=== PATIENT | male | born 1935 | race Caucasian/White ===

== ENCOUNTER 2021-07-23 17:10 | Emergency (ER) | payer OTHER ==
[2021-07-23 17:27] VITALS: TEMP 98.4; BMI 32.1
[2021-07-23 18:59] LABS: BASO % 0.4 % (0-2.0); EOS % 0.9 % (0-4.5); HEMATOCRIT 34.8 % (35.4-49); HEMOGLOBIN 11.9 GM/dL (11.7-16.9); LYMPH % 31.1 % (8-40); MCH 29.5 pg (25.7-33.7); MEAN CELL VOLUME 86.8 fl (80-96); MEAN PLT VOLUME 9.9 fl (7.5-11.1); MONO % 28.6 % (3.8-10.2); PLATELET COUNT 119 10^3/uL (134-434); RBC 4.01 M/mm3 (4.00-5.60); RDW 14.3 % (11.9-15.9); WHITE BLOOD COUNT 5.4 K/mm3 (4.0-10.0)
[2021-07-23 19:15] LABS: ALBUMIN 3.9 g/dl (3.4-5.0); BLOOD UREA NITROGEN 21.8 mg/dL (7-18); CALCIUM 9.1 mg/dL (8.5-10.1)
[2021-07-23 19:18] LABS: CREATININE 1.3 mg/dL (0.55-1.3)
[2021-07-23 19:21] VITALS: BP 154/66; PULSE 66
[2021-07-23 19:21] LABS: BILIRUBIN,TOTAL 0.4 mg/dL (0.2-1)
[2021-07-23 19:27] LABS: EPI CELLS 3 /uL (0-25.1); HYALINE CASTS 15 /uL (0-3.1); URINE APPEARANCE TURBID; URINE BILIRUBIN 2+ (NEGATIVE); URINE COLOR RED; URINE GLUCOSE (UA) NEGATIVE (NEGATIVE); URINE KETONE NEGATIVE (NEGATIVE); URINE LEUK ESTERASE 2+ (NEGATIVE); URINE NITRITE POSITIVE (NEGATIVE); URINE PROTEIN 2+ (NEGATIVE); URINE RBC 5787 /uL (0-23.9); URINE UROBILINOGEN 0.2 mg/dL (0.2-1.0); URINE WBC 7 /uL (0-25.8)
[2021-07-23] MEDS ORDERED: CEFPODOXIME PROXETIL 100 MG TABLET PO ONE ×2 (19:39→19:46)
[2021-07-23 20:06] LABS: URINE BACTERIA NONE SEEN /uL (0-1359)
[2021-07-23 20:47] LABS: ANISOCYTOSIS 1+; MACROCYTOSIS 0
[2021-07-23 22:33] LABS: PLATELET ESTIMATE ADEQUATE
== END 2021-07-23 20:41 | disposition home or self-care (01) ==
LOC: JER 17:10
DX: N30.01 Acute cystitis with hematuria (principal)
CPT/HCPCS: 36415; 71045-TC-FY; 80053; 81003; 84443; 84484; 85025; 86850; 86900; 86901; 87086; 87186; 93005; 93010; 99285-25

== ENCOUNTER 2022-01-31 17:45 | Inpatient (IN) | payer OTHER, MEDICARE ==
[2022-01-31 20:27] LABS: HEMOGLOBIN 10.2 GM/dL (11.7-16.9); MCH 28.5 pg (25.7-33.7); MEAN CELL VOLUME 83.9 fl (80-96); MEAN PLT VOLUME 9.6 fl (7.5-11.1); PLATELET COUNT 233 10^3/uL (134-434); RBC 3.57 M/mm3 (4.00-5.60); RDW 16.9 % (11.9-15.9); WHITE BLOOD COUNT 8.6 K/mm3 (4.0-10.0)
[2022-01-31 20:38] LABS: INR 1.21 (0.83-1.09); PROTHROMBIN TIME (PATIENT) 13.9 SEC (9.7-13.0)
[2022-01-31 20:40] LABS: ACTIVATED PTT 37.1 SECONDS (25.2-36.5)
[2022-01-31 20:41] LABS: BLOOD UREA NITROGEN 15.6 mg/dL (7-18); CALCIUM 8.8 mg/dL (8.5-10.1); MAGNESIUM 1.9 mg/dL (1.8-2.4)
[2022-01-31 20:42] LABS: ALBUMIN 2.8 g/dl (3.4-5.0)
[2022-01-31 20:44] LABS: CREATININE 1.4 mg/dL (0.55-1.3)
[2022-01-31 20:46] LABS: BILIRUBIN,TOTAL 1.3 mg/dL (0.2-1); TOT PROT 6.2 g/dl (6.4-8.2)
[2022-01-31 21:09] LABS: ANISOCYTOSIS 1+; MACROCYTOSIS 0
[2022-01-31] MEDS ORDERED: LACTATED RINGERS SOLUTION 1000 ML INFUS.BAG IV ONE (21:09)
[2022-02-01 05:08] LABS: EPI CELLS 4 /uL (0-25.1); HYALINE CASTS 3 /uL (0-3.1); PH,URINE 7.5 (5.0-8.0); URINE APPEARANCE CLEAR; URINE BACTERIA 2 /uL (0-1359); URINE BILIRUBIN NEGATIVE (NEGATIVE); URINE COLOR YELLOW; URINE GLUCOSE (UA) NEGATIVE (NEGATIVE); URINE KETONE NEGATIVE (NEGATIVE); URINE LEUK ESTERASE NEGATIVE (NEGATIVE); URINE NITRITE NEGATIVE (NEGATIVE); URINE PROTEIN 3+ (NEGATIVE); URINE RBC 3 /uL (0-23.9); URINE UROBILINOGEN 0.2 mg/dL (0.2-1.0); URINE WBC 4 /uL (0-25.8)
[2022-02-01] MEDS ORDERED: PNEUMOC 20-VAL CONJ-DIP CRM/PF 0.5 ML SYRINGE IM ONE (10:00)
[2022-02-01 10:29] LABS: HEMOGLOBIN 8.8 GM/dL (11.7-16.9); MCH 28.7 pg (25.7-33.7); MCHC 33.9 g/dl (32.0-35.9); MEAN CELL VOLUME 84.7 fl (80-96); MEAN PLT VOLUME 9.8 fl (7.5-11.1); PLATELET COUNT 153 10^3/uL (134-434); RBC 3.07 M/mm3 (4.00-5.60); RDW 16.6 % (11.9-15.9); WHITE BLOOD COUNT 8.1 K/mm3 (4.0-10.0)
[2022-02-01 10:49] LABS: CALCIUM 8.6 mg/dL (8.5-10.1)
[2022-02-01 10:50] LABS: ALBUMIN 2.8 g/dl (3.4-5.0); BLOOD UREA NITROGEN 11.2 mg/dL (7-18)
[2022-02-01 10:53] LABS: CREATININE 1.2 mg/dL (0.55-1.3)
[2022-02-01 10:54] LABS: BILIRUBIN,TOTAL 0.5 mg/dL (0.2-1)
[2022-02-01 10:55] LABS: TOT PROT 5.8 g/dl (6.4-8.2)
[2022-02-01] MEDS ORDERED: POTASSIUM CHLORIDE TABS 20 MEQ TABLET.ER (FP) PO ONE (11:19)
[2022-02-01] MEDS ORDERED: ALBUTEROL SO4 2.5/IPRATROPIUM 0.5 INH SOL 3 ML VIAL.NEB. NEB PRN (11:43)
[2022-02-01 11:45] LABS: ANISOCYTOSIS 1+; MACROCYTOSIS 0; OVALOCYTE 1+
[2022-02-01] MEDS: SODIUM CHLORIDE 0.45%/POT 20 MEQ/1,000 ML INFUS.BAG IV SCH (14:11)
[2022-02-01] MEDS: LORazepam 0.5 MG TABLET PO PRN (17:36)
[2022-02-02] MEDS: LORazepam 0.5 MG TABLET PO PRN ×2 (09:46→18:52)
[2022-02-02 13:13] LABS: CALCIUM 8.7 mg/dL (8.5-10.1)
[2022-02-02 13:14] LABS: ALBUMIN 2.8 g/dl (3.4-5.0); BLOOD UREA NITROGEN 13.8 mg/dL (7-18)
[2022-02-02 13:17] LABS: CREATININE 1.3 mg/dL (0.55-1.3); PHOSPHOROUS 2.8 mg/dL (2.5-4.9)
[2022-02-02 13:18] LABS: BILIRUBIN,TOTAL 0.6 mg/dL (0.2-1)
[2022-02-02 13:19] LABS: TOT PROT 5.9 g/dl (6.4-8.2)
[2022-02-02 13:46] LABS: HEMATOCRIT 32.5 % (35.4-49); HEMOGLOBIN 10.7 GM/dL (11.7-16.9); MCH 27.7 pg (25.7-33.7); MCHC 32.9 g/dl (32.0-35.9); MEAN CELL VOLUME 84.4 fl (80-96); MEAN PLT VOLUME 10.1 fl (7.5-11.1); PLATELET COUNT 223 10^3/uL (134-434); RBC 3.85 M/mm3 (4.00-5.60); RDW 16.7 % (11.9-15.9); WHITE BLOOD COUNT 9.5 K/mm3 (4.0-10.0)
[2022-02-02 14:33] LABS: ANISOCYTOSIS 1+; MACROCYTOSIS 0
[2022-02-02 15:51] VITALS: BMI 30.1
[2022-02-03] MEDS: SODIUM CHLORIDE 0.45%/POT 20 MEQ/1,000 ML INFUS.BAG IV SCH (08:36)
[2022-02-03] MEDS: LOSARTAN POTASSIUM 50 MG TABLET PO SCH (12:43)
[2022-02-03] MEDS ORDERED: FLUTICASONE/UMECLIDIN/VILANTER(100-62.5-25 TRELEGY ELLIPTA) INAHLER IH SCH (14:00)
[2022-02-03] MEDS: FLUTICASONE/UMECLIDIN/VILANTER(100-62.5-25 TRELEGY ELLIPTA) INAHLER IH SCH (14:21)
[2022-02-03] MEDS: LORazepam 0.5 MG TABLET PO PRN (15:04)
[2022-02-03] MEDS ORDERED: MELATONIN 5 MG TABLETS PO ONE (22:30)
[2022-02-04] MEDS: APIXABAN 5 MG TABLET PO SCH ×2 (11:55→21:12)
[2022-02-04] MEDS: LOSARTAN POTASSIUM 50 MG TABLET PO SCH (11:55)
[2022-02-04] MEDS: FLUTICASONE/UMECLIDIN/VILANTER(100-62.5-25 TRELEGY ELLIPTA) INAHLER IH SCH (11:56)
[2022-02-04] MEDS: LORazepam 0.5 MG TABLET PO PRN (11:56)
[2022-02-04] MEDS ORDERED: clonazePAM 0.5 MG TABLET PO PRN (19:01)
[2022-02-04] MEDS: THIAMINE HCL 200 MG/2 ML VIAL IVPB SCH (20:12)
[2022-02-04] MEDS: clonazePAM 0.5 MG TABLET PO PRN (21:12)
[2022-02-04] MEDS: QUEtiapine FUMARATE 25 MG TABLET PO SCH (21:13)
[2022-02-05] MEDS: THIAMINE HCL 200 MG/2 ML VIAL IVPB SCH ×3 (03:27→19:20)
[2022-02-05] MEDS: LOSARTAN POTASSIUM 50 MG TABLET PO SCH (09:17)
[2022-02-05] MEDS: APIXABAN 5 MG TABLET PO SCH ×2 (09:17→21:10)
[2022-02-05] MEDS: clonazePAM 0.5 MG TABLET PO PRN ×2 (09:17→21:10)
[2022-02-05] MEDS: FLUTICASONE/UMECLIDIN/VILANTER(100-62.5-25 TRELEGY ELLIPTA) INAHLER IH SCH (09:24)
[2022-02-05] MEDS: ALBUTEROL SO4 2.5/IPRATROPIUM 0.5 INH SOL 3 ML VIAL.NEB. NEB SCH ×3 (11:50→19:29)
[2022-02-05] MEDS ORDERED: LOSARTAN POTASSIUM 50 MG TABLET PO SCH (14:20)
[2022-02-05] MEDS: QUEtiapine FUMARATE 25 MG TABLET PO SCH (21:10)
[2022-02-06 02:26] VITALS: BP 160/94; PULSE 77; RESP 20; TEMP 99.2
[2022-02-06] MEDS ORDERED: amLODIPine BESYLATE 5 MG TABLET (FP) PO SCH (10:00)
== END 2022-02-06 00:45 | DRG 640 ==
LOC: JER 17:45 → JERBED 21:05 → J5S 02-01 03:45
PROVIDERS: ADMIT Internal Medicine; ATTEND Family Medicine
DX: R62.7 Adult failure to thrive (principal); G93.41 Metabolic encephalopathy; N17.9 Acute kidney failure, unspecified; I48.20 Chronic atrial fibrillation, unspecified; Z68.30 Body mass index [BMI] 30.0-30.9, adult; I10 Essential (primary) hypertension; J44.9 Chronic obstructive pulmonary disease, unspecified; E86.0 Dehydration; E66.9 Obesity, unspecified; F41.9 Anxiety disorder, unspecified; E87.6 Hypokalemia; D64.9 Anemia, unspecified; Z85.46 Personal history of malignant neoplasm of prostate; F19.239 Other psychoactive substance dependence with withdrawal, unspecified; Z99.81 Dependence on supplemental oxygen; Z78.9 Other specified health status; Z88.1 Allergy status to other antibiotic agents
CPT/HCPCS: 0241U-QW; 36415; 70450-TC; 71045-TC-FY; 80053; 81003; 82607; 83690; 83735; 84100; 84443; 84484; 85025; 85610; 85730; 86780; 87086; 87186; 93005; 93010; 94640; 99285-25; J3480

== ENCOUNTER 2024-08-07 10:41 | Inpatient (IN) | payer MEDICARE, OTHER ==
[2024-08-07 12:09] LABS: HEMATOCRIT 39.1 % (40.1-51.0); HEMOGLOBIN 12.3 g/dL (13.7-17.5); MCHC 31.5 g/dl (32.3-36.5); MEAN CELL VOLUME 88.3 fl (79.0-92.2); MEAN PLT VOLUME 12.1 fl (9.4-12.4); PLATELET COUNT 134 x10^3/uL (163-337); RDW 16.5 % (12.6-16.6)
[2024-08-07 12:30] LABS: POTASSIUM 3.4 mmol/L (3.5-5.1)
[2024-08-07 12:32] LABS: ALBUMIN 3.6 g/dl (3.4-5.0); CALCIUM 9.9 mg/dL (8.5-10.1)
[2024-08-07 12:33] LABS: BLOOD UREA NITROGEN 15.8 mg/dL (7-18); MAGNESIUM 2.2 mg/dL (1.8-2.4)
[2024-08-07 12:35] LABS: CREATININE 1.8 mg/dL (0.55-1.3)
[2024-08-07 12:36] LABS: VENOUS BASE EXCESS -2.7 mmol/L (-2-2); VENOUS O2 SATURATION 69.8 % (70-80); VENOUS PCO2 36.1 mmHg (38-52); VENOUS PH 7.395 (7.310-7.410)
[2024-08-07 12:37] LABS: BILIRUBIN,TOTAL 0.6 mg/dL (0.2-1); TOT PROT 6.6 g/dl (6.4-8.2)
[2024-08-07 12:41] LABS: N-TERMINAL BNP 8017.4 pg/ml (5-450)
[2024-08-07] MEDS: SODIUM CHLORIDE 500 ML IV STA (13:46)
[2024-08-07] MEDS: FUROSEMIDE 40 MG/4 ML INJECTABLE VIAL IVPUSH ONE (14:57)
[2024-08-07] MEDS ORDERED: FUROSEMIDE 40 MG/4 ML INJECTABLE VIAL ONE (14:58)
[2024-08-07 15:35] LABS: EPI CELLS 9 /uL (0-25.1); HYALINE CASTS 1 /uL (0-3.1); PH,URINE 5.5 (5.0-8.0); URINE APPEARANCE CLEAR; URINE BACTERIA 8 /uL (0-1359); URINE BILIRUBIN NEGATIVE (NEGATIVE); URINE COLOR YELLOW; URINE GLUCOSE (UA) 1+ (NEGATIVE); URINE KETONE NEGATIVE (NEGATIVE); URINE LEUK ESTERASE NEGATIVE (NEGATIVE); URINE NITRITE NEGATIVE (NEGATIVE); URINE PROTEIN 4+ (NEGATIVE); URINE RBC 27 /uL (0-23.9); URINE UROBILINOGEN 0.2 mg/dL (0.2-1.0); URINE WBC 13 /uL (0-25.8)
[2024-08-07] MEDS ORDERED: ALBUTEROL SO4 2.5/IPRATROPIUM 0.5 INH SOL 3 ML VIAL.NEB. NEB PRN (18:00)
[2024-08-07] MEDS: ESCITALOPRAM OXALATE 10 MG TABLET PO SCH (18:29)
[2024-08-07] MEDS: POTASSIUM CHLORIDE ORAL LIQUID 20 MEQ/15 ML PO ONE (20:18)
[2024-08-07] MEDS: POTASSIUM CHLORIDE ORAL LIQUID 20 MEQ/15 ML PO SCH (21:44)
[2024-08-07] MEDS: APIXABAN 2.5 MG TABLET PO SCH (21:44)
[2024-08-07] MEDS: QUEtiapine FUMARATE 25 MG TABLET PO SCH (21:44)
[2024-08-07] MEDS: ACETAMINOPHEN 325 MG TABLET (FP) PO PRN (21:45)
[2024-08-07 23:30] VITALS: BMI 28.5
[2024-08-08] MEDS: FUROSEMIDE 40 MG/4 ML INJECTABLE VIAL IVPUSH SCH (06:00)
[2024-08-08 07:03] LABS: POTASSIUM 3.5 mmol/L (3.5-5.1)
[2024-08-08 07:12] LABS: HEMATOCRIT 38.6 % (40.1-51.0); HEMOGLOBIN 12.4 g/dL (13.7-17.5); MCHC 32.1 g/dl (32.3-36.5); MEAN CELL VOLUME 86.7 fl (79.0-92.2); MEAN PLT VOLUME 12.8 fl (9.4-12.4); PLATELET COUNT 139 x10^3/uL (163-337); RDW 16.7 % (12.6-16.6)
[2024-08-08 07:14] LABS: ALBUMIN 3.3 g/dl (3.4-5.0); BLOOD UREA NITROGEN 15.9 mg/dL (7-18); CALCIUM 9.2 mg/dL (8.5-10.1); MAGNESIUM 2.2 mg/dL (1.8-2.4)
[2024-08-08 07:19] LABS: CREATININE 1.9 mg/dL (0.55-1.3)
[2024-08-08 07:20] LABS: BILIRUBIN,TOTAL 0.6 mg/dL (0.2-1); TOT PROT 6.2 g/dl (6.4-8.2)
[2024-08-08] MEDS: LOSARTAN POTASSIUM 50 MG TABLET PO SCH (09:38)
[2024-08-08] MEDS: FLUTICASONE/UMECLIDIN/VILANTER(100-62.5-25 TRELEGY ELLIPTA) INAHLER IH SCH (09:39)
[2024-08-08] MEDS: LORazepam 1 MG TABLET PO PRN (09:59)
[2024-08-08] MEDS: POTASSIUM CHLORIDE ORAL LIQUID 20 MEQ/15 ML PO ONE (10:33)
[2024-08-09] MEDS: MELATONIN 5 MG TABLETS PO ONE (02:19)
[2024-08-09 08:38] LABS: POTASSIUM 3.8 mmol/L (3.5-5.1)
[2024-08-09 08:39] LABS: CALCIUM 9.5 mg/dL (8.5-10.1)
[2024-08-09 08:40] LABS: ALBUMIN 3.3 g/dl (3.4-5.0)
[2024-08-09 08:44] LABS: BILIRUBIN,TOTAL 0.5 mg/dL (0.2-1); CREATININE 1.8 mg/dL (0.55-1.3)
[2024-08-09 09:38] LABS: TOT PROT 6.5 g/dl (6.4-8.2)
[2024-08-09] MEDS: LORazepam 1 MG TABLET PO ONE (16:04)
[2024-08-09] MEDS: LORazepam 1 MG TABLET PO PRN (22:19)
[2024-08-09] MEDS: SACUBITRIL/VALSARTAN 24 MG-26 MG TABLET PO SCH (22:20)
[2024-08-10 07:57] LABS: POTASSIUM 3.7 mmol/L (3.5-5.1)
[2024-08-10 08:00] LABS: CALCIUM 9.3 mg/dL (8.5-10.1)
[2024-08-10 08:01] LABS: BLOOD UREA NITROGEN 21.4 mg/dL (7-18)
[2024-08-10 08:04] LABS: CREATININE 1.8 mg/dL (0.55-1.3)
[2024-08-11 06:54] VITALS: PULSE 71; TEMP 98.1
[2024-08-11 09:17] VITALS: BP 128/77; RESP 16
[2024-08-11] MEDS: FUROSEMIDE 40 MG TABLET (FP) PO SCH (10:43)
== END 2024-08-11 14:52 | disposition home health service (06) | DRG 291 ==
LOC: JER 10:41 → JERBED 14:50 → J4S 18:24
PROVIDERS: ADMIT Family Medicine; ATTEND Family Medicine
DX: I13.0 Hypertensive heart and chronic kidney disease with heart failure and stage 1 through stage 4 chronic kidney disease, or unspecified chronic kidney disease (principal); I50.33 Acute on chronic diastolic (congestive) heart failure; J44.1 Chronic obstructive pulmonary disease with (acute) exacerbation; R62.7 Adult failure to thrive; E86.0 Dehydration; N18.9 Chronic kidney disease, unspecified
CPT/HCPCS: 36415; 71045-TC-FY; 72128-TC; 72131-TC; 72170-TC-FY; 74176-TC; 80048; 80053; 81003; 82803; 83036; 83605; 83735; 83880; 84153; 84443; 84484; 85025; 93005; 93010; 93306-TC; 97116-GP; 97161-GP; 99285-25

== ENCOUNTER 2024-08-22 09:45 | Inpatient (IN) | payer OTHER ==
[2024-08-22] MEDS ORDERED: FAMOTIDINE 20 MG/50 ML IVPB 20 MG/50 ML MG IVPB ONE (10:47)
[2024-08-22] MEDS ORDERED: ACETAMINOPHEN INJECTION 100 ML ONE (10:47)
[2024-08-22] MEDS ORDERED: ONDANSETRON 4 MG/2 ML VIAL ONE (10:47)
[2024-08-22 11:19] LABS: HEMATOCRIT 38.4 % (40.1-51.0); HEMOGLOBIN 12.3 g/dL (13.7-17.5); MEAN CELL VOLUME 87.3 fl (79.0-92.2); MEAN PLT VOLUME 12.3 fl (9.4-12.4); PLATELET COUNT 109 x10^3/uL (163-337); RDW 15.6 % (12.6-16.6)
[2024-08-22] MEDS: ACETAMINOPHEN 1000 MG/100 ML BAG IVPB ONE (11:23)
[2024-08-22] MEDS: ONDANSETRON 4 MG/2 ML VIAL IVPUSH ONE (11:23)
[2024-08-22] MEDS: FAMOTIDINE 20 MG/50 ML IVPB 20 MG/50 ML MG IVPB ONE (11:23)
[2024-08-22 11:40] LABS: POTASSIUM 3.4 mmol/L (3.5-5.1)
[2024-08-22 11:42] LABS: ALBUMIN 3.8 g/dl (3.4-5.0); BLOOD UREA NITROGEN 24.5 mg/dL (7-18); CALCIUM 9.9 mg/dL (8.5-10.1)
[2024-08-22 11:47] LABS: BILIRUBIN,TOTAL 0.7 mg/dL (0.2-1); TOT PROT 6.7 g/dl (6.4-8.2)
[2024-08-22 11:57] LABS: EPI CELLS 9 /uL (0-25.1); HYALINE CASTS 1 /uL (0-3.1); PH,URINE 5.5 (5.0-8.0); URINE APPEARANCE CLEAR; URINE BACTERIA 121 /uL (0-1359); URINE BILIRUBIN NEGATIVE (NEGATIVE); URINE COLOR YELLOW; URINE GLUCOSE (UA) TRACE (NEGATIVE); URINE KETONE TRACE (NEGATIVE); URINE LEUK ESTERASE NEGATIVE (NEGATIVE); URINE NITRITE NEGATIVE (NEGATIVE); URINE PROTEIN 3+ (NEGATIVE); URINE RBC 18 /uL (0-23.9); URINE UROBILINOGEN 0.2 mg/dL (0.2-1.0); URINE WBC 12 /uL (0-25.8)
[2024-08-22] MEDS ORDERED: ALBUTEROL SO4 2.5/IPRATROPIUM 0.5 INH SOL 3 ML VIAL.NEB. NEB PRN (15:55)
[2024-08-22] MEDS: SACUBITRIL/VALSARTAN 24 MG-26 MG TABLET PO SCH (21:21)
[2024-08-22] MEDS: QUEtiapine FUMARATE 25 MG TABLET PO SCH (21:21)
[2024-08-22] MEDS: APIXABAN 2.5 MG TABLET PO SCH (21:24)
[2024-08-22] MEDS: amLODIPine BESYLATE 5 MG TABLET (FP) PO SCH (21:24)
[2024-08-22] MEDS: LORazepam 0.5 MG TABLET PO PRN (21:25)
[2024-08-22] MEDS: ACETAMINOPHEN 325 MG TABLET (FP) PO ONE (22:00)
[2024-08-23] MEDS: EMPAGLIFLOZIN (JARDIANCE) 10 MG TABLET PO SCH (06:41)
[2024-08-23 08:35] LABS: POTASSIUM 3.4 mmol/L (3.5-5.1)
[2024-08-23 08:37] LABS: CALCIUM 9.6 mg/dL (8.5-10.1)
[2024-08-23 08:41] LABS: CREATININE 1.9 mg/dL (0.55-1.3)
[2024-08-23] MEDS: TORSEMIDE 20 MG TABLET (FP) PO SCH ×2 (09:54→12:45)
[2024-08-23] MEDS: ESCITALOPRAM OXALATE 10 MG TABLET PO SCH (09:54)
[2024-08-23] MEDS: POTASSIUM CHLORIDE ORAL LIQUID 20 MEQ/15 ML PO SCH (09:55)
[2024-08-23] MEDS ORDERED: ENOXAPARIN NA (PORCINE) 40 MG/0.4 ML DISP.SYRIN SQ SCH (10:00)
[2024-08-23] MEDS: POTASSIUM CHLORIDE ORAL LIQUID 20 MEQ/15 ML PO ONE (12:45)
[2024-08-23 13:53] VITALS: BP 118/79; PULSE 68; RESP 18; TEMP 98.1
[2024-08-23] MEDS: FLUTICASONE/UMECLIDIN/VILANTER(200-62.5-25 TRELEGY ELLIPTA) INAHLER IH SCH (14:00)
== END 2024-08-23 15:53 | disposition home or self-care (01) | DRG 392 ==
LOC: JER 09:45 → JERBED 15:44 → J7W 17:53
PROVIDERS: ADMIT Family Medicine; ATTEND Family Medicine
DX: R10.13 Epigastric pain (principal); I13.0 Hypertensive heart and chronic kidney disease with heart failure and stage 1 through stage 4 chronic kidney disease, or unspecified chronic kidney disease; I50.9 Heart failure, unspecified; J44.9 Chronic obstructive pulmonary disease, unspecified; N18.9 Chronic kidney disease, unspecified; E86.0 Dehydration; R62.7 Adult failure to thrive; I48.91 Unspecified atrial fibrillation; M54.9 Dorsalgia, unspecified; R53.1 Weakness; R11.0 Nausea
CPT/HCPCS: 0241U-QW; 36415; 71045-TC-FY; 74177-TC; 80048; 80053; 81003; 83605; 83690; 84484; 85027; 87086; 93005; 93010; 97116-GP; 97161-GP; 99285-25